=== PATIENT | female | born 1945 | race Caucasian/White ===

== ENCOUNTER → 2017-07-07 | Day surgery (SDC) | payer MEDICARE, BC ==
--- NOTE | 2017-07-03 13:24 | TH ---
cc: NIKKY CONWAY M.D. DATE OF : 1945 DATE: 07/03/2017 PROCEDURE PREFORMED: Excision of basal cell carcinoma right dorsal upper nose. PAST MEDICAL HISTORY: Otherwise unremarkable. The patient had a kidney transplant back on 08/30/2016. The patient takes immunosuppressant steroids and the appropriate antirejection medications as well as magnesium. PAST MEDICAL HISTORY: The patient's past medical history is otherwise unremarkable PHYSICAL EXAMINATION: CONSTITUTIONAL: General appearance. The patient is a well-developed female in no acute distress. Body habitus is within normal limits. There appear to be no deformities. Appears to have attention to grooming. HEENT: Eyes Conjunctivae and lids are within normal anatomical limits. The pupils are reactive to light and accommodation, size, and symmetry. There is no evidence of exudate, hemorrhage, or vessel change. Ears, mouth, nose, and throat the lesion located at the right nasal dorsum of about a 1 cm to 1.5 cm. RESPIRATORY: The patient shows no evidence of intercostal refractions. Otherwise, lungs are clear to auscultation without any abnormal sounds or rubs. CARDIOVASCULAR: The patient has a normal heart rate and rhythm. There is no evidence of noticed carotid bruits. Femoral pulses and pedal pulses in extremities are also within normal limits. GASTROINTESTINAL/ABDOMEN: Soft with no evidence of masses or tenderness. Unable to palpate the liver or spleen. No evidence of hernia. MUSCULOSKELETAL: Appears to be reasonable range of motion on the head, neck, spine, ribs, pelvis, right upper extremity, left upper extremity, right lower extremity, and left lower extremity. The muscle strength and tone appears to be equal and within accepted limits. SKIN: There is no rashes, lesions, or ulcers on the trunk, back, and extremities. NEUROLOGICAL: Examination is grossly normal. PSYCHIATRIC: The patient appears to have good orientation of time, place, and person. Does not appear to have any mood effects of depression, anxiety, or agitation. ASSESSMENT AND PLAN: The lesion is located in the right nasal dorsum of about a 1 cm to 1.5 cm's. PLAN: Perform wide local excision with appropriate reconstruction including a V to Y. MD SWETHA Thomas/brigida /12:32 PM /12:43 PM
[~2017-07-07] MED LIST: ACETAMINOPHEN 1000 MG/100 ML 100 ML IV ONE; LIDOCAINE 1%/EPINEPHrine 1:200,000 PF SOLN 30 ML VIAL ONE; MIDAZOLAM HCL 2 MG/2 ML VIAL ONE; NEOMYCIN/POLYMYXIN/BACITRACIN OINT 15 GM TUBE ONE; ONDANSETRON HCL 4 MG/2 ML VIAL IV PUSH ONE; PROPOFOL 200 MG/20 ML AMP IV ONE; ceFAZolin INJ 1,000 MG VIAL ONE
--- NOTE | 2017-07-07 16:10 | TN ---
cc: ISAAC HUTSON M.D. DATE OF SURGERY: 07/07/2017 PREOPERATIVE DIAGNOSIS Basal carcinoma, right nasal wall. POSTOPERATIVE DIAGNOSIS Basal carcinoma, right nasal wall. PROCEDURE: The procedure is wide local excision, resultant primary defect including the lesion of approximately 1.5 x 1.2 cm. This required for frozen section which was negative read by <<0:34>> and a tissue arrangement reconstruction for a secondary defect of 1.5 x 3 cm. SURGEON Isaac Hutson MD ANESTHESIA LMA general. ESTIMATED BLOOD LOSS: Minimal. COMPLICATIONS: None. PROCEDURE She was properly consented, marked properly anesthetized skin sterilized microcytic sterile draping applied. Excision of 1.5 x 1.2 cm was carried out utilizing 15 blade lesion located on the right nasal wall and sent to pathology for frozen section. The results were negative for further pathology of V to Y secondary defect of 1.5 x 3 cm tissue arrangement construction was elevated and inset into the defect utilizing 5-0 Monocryl suture of 5-0 fast-absorbing gut, platelet tissue was noted of the case. Absorbent dressings were applied. The patient was awakened, extubated in the operating room transferred back to postanesthesia care unit in stable condition. No complications were appreciated. The patient tolerated the procedure fairly well. MD SWETHA Thomas/brigida /3:48 PM /4:03 PM [facility]
== END | disposition home or self-care (01) ==
LOC: ESDC 12:14
PROVIDERS: ATTEND Plastic Surgery
DX: C44.311 Basal cell carcinoma of skin of nose (principal)
CPT/HCPCS: 00300; 14060; 88305; 88331; J0131; J0690; J2250; J2405; J3010